=== PATIENT | female | born 1965 | race Caucasian/White ===

== ENCOUNTER 2016-10-23 06:08 | Inpatient (IN) | payer OTHER ==
[~2016-10-23] VITALS: Ht 160 cm; Wt 62.1 kg
[2016-10-23] MEDS ORDERED: CEFAZOLIN 1 GM IVPB PREMIX 50 ML IV ONE (07:00)
[2016-10-23] MEDS ORDERED: LR 1,000 ML IV.SOLN IV ONE (07:30)
[2016-10-23] MEDS ORDERED: GLYCOPYRROLATE 0.2 MG/ML VIAL IJ ONE (07:30)
[2016-10-23] MEDS ORDERED: PROPOFOL 200MG/ 20ML VIAL (DIPRIVAN) IV ONE (07:30)
[2016-10-23] MEDS ORDERED: NEOSTIGMINE METHYLSULFATE 1 MG/ML, 10 ML VIAL IVP ONE (07:30)
[2016-10-23] MEDS ORDERED: KETOROLAC TROMETHAMINE 30 MG VIAL IVP ONE (07:30)
[2016-10-23] MEDS ORDERED: NS IRRIG SOLN 1000 ML IR ONE (07:30)
[2016-10-23] MEDS ORDERED: ROCURONIUM BROMIDE 10 MG/ML (ZEMURON) IV ONE (07:30)
[2016-10-23] MEDS ORDERED: MIDAZOLAM HCL 5 MG/5 ML VIAL IVP ONE (07:30)
[2016-10-23] MEDS ORDERED: SEVOFLURANE 15 MIN GAS INH ONE (07:30)
[2016-10-23] MEDS ORDERED: fentaNYL CITRATE 250 MCG/5 ML AMP IV ONE (07:30)
[2016-10-23] MEDS ORDERED: ONDANSETRON HCL 4 MG/2 ML VIAL IVP ONE (07:30)
[2016-10-23] MEDS ORDERED: LR 1,000 ML IV SCH ×2 (08:29→09:20)
[2016-10-23] MEDS ORDERED: MORPHINE 2 MG/ML INJ. SYRINGE IVP PRN ×3 (08:30)
[2016-10-23] MEDS ORDERED: METOCLOPRAMIDE HCL 10 MG/2 ML VIAL IVP PRN (08:30)
[2016-10-23] MEDS ORDERED: OXYCODONE/ACETAMINOPHEN 5-325 TABLET PO PRN ×2 (09:30)
[2016-10-23] MEDS: MORPHINE 4 MG/ML INJ. SYRINGE ONE ×2 (09:48→09:58)
[2016-10-23] MEDS ORDERED: METOCLOPRAMIDE HCL 10 MG/2 ML VIAL ONE (09:59)
[2016-10-23] MEDS ORDERED: MORPHINE 4 MG/ML INJ. SYRINGE ONE (10:19)
[2016-10-23] MEDS ORDERED: MORPHINE SULFATE 10 MG/ML VIAL IM ONE (13:00)
[2016-10-23] MEDS: ONDANSETRON HCL 4 MG/2 ML VIAL IVP PRN ×2 (16:29→23:53)
[2016-10-23 17:42] VITALS: BP_SYST 123
[2016-10-23] MEDS ORDERED: TEMAZEPAM 15 MG CAPSULE PO PRN (21:00)
[2016-10-23] MEDS ORDERED: SENNOSIDES/DOCUSATE SODIUM 1 TAB TABLET(SENOKOT-S) PO PRN ×2 (21:00)
[2016-10-24] MEDS: IBUPROFEN 800 MG TABLET PO PRN ×2 (06:05→13:21)
[2016-10-24 06:56] LABS: HEMATOCRIT 32.1 % (36-48); HEMOGLOBIN 10.9 g/dL (12.0-16.0)
[2016-10-24] MEDS: SIMETHICONE 80 MG TAB.CHEW PO PRN ×2 (08:10→13:21)
[2016-10-24] MEDS: ONDANSETRON HCL 4 MG/2 ML VIAL IVP PRN (11:03)
== END 2016-10-24 18:14 | disposition home or self-care (01) | DRG 743 ==
LOC: SMU 06:08 → EDSTATUS 07:30 → SPU 11:04
PROVIDERS: ADMIT Obstetrics & Gynecology; ATTEND Obstetrics & Gynecology
PROC: 0UT00ZZ Resection of Right Ovary, Open Approach (ICD-10-PCS; 2016-10-23)
PROC: 0UT70ZZ Resection of Bilateral Fallopian Tubes, Open Approach (ICD-10-PCS; principal; 2016-10-23 07:30)
DX: N83.8 Other noninflammatory disorders of ovary, fallopian tube and broad ligament (principal); F41.9 Anxiety disorder, unspecified; R19.00 Intra-abdominal and pelvic swelling, mass and lump, unspecified site; E55.9 Vitamin D deficiency, unspecified; Z83.3 Family history of diabetes mellitus
CPT/HCPCS: 36415; 85018-TC; 86886; 86900; 86901; 87081; 88305; J0690; J1885; J2250; J2270; J2405; J2704; J2710; J2765; J3010; J3490; J7120